=== PATIENT | female | born 1995 | race Caucasian/White ===

== ENCOUNTER → 2018-06-20 16:55 | Outpatient (CLI) | payer BC, SELFPAY ==
[2018-06-24 14:35] LABS: HPV Reflexed? NOT INDICATED
== END ==
PROVIDERS: Visit Provider Obstetrics & Gynecology
DX: Z12.4 Encounter for screening for malignant neoplasm of cervix (principal)
CPT/HCPCS: 88175; G0145

== ENCOUNTER → 2018-12-12 12:20 | Outpatient (CLI) | payer OTHER, SELFPAY ==
[2018-12-10 15:18] VITALS: BMI 26.2
--- NOTE | 2018-12-12 12:23 | US_ITS ---
STUDY: SUPERFICIAL ULTRASOUND - RIGHT SHOULDER REASON FOR EXAM: Female, 23 years old. Palpable mass of the right shoulder and right upper quadrant rib region TECHNIQUE: A superficial ultrasound was performed with real-time and static hoover-scale imaging. COMPARISON: None. FINDINGS: Imaging of the right shoulder shows normal soft tissue planes without focal fluid collection or solid mass. Imaging of the left upper quadrant shows some shadowing artifact caused by the ribs but no focal fluid collection or solid mass. US/Other Unlisted US Procedure IMPRESSION: No solid or cystic mass demonstrated. Electronically Signed: Farhan Stevenson MD at 17:28 EST , Service support ,
== END ==
PROVIDERS: Family Provider Internal Medicine; PCP Internal Medicine; Referring Provider Internal Medicine; Visit Provider Internal Medicine
DX: R22.2 Localized swelling, mass and lump, trunk (principal)
CPT/HCPCS: 76999

== ENCOUNTER → 2021-10-30 10:46 | Outpatient (CLI) | payer OTHER, SELFPAY ==
[2021-11-01 09:47] LABS: HPV Reflexed? NOT INDICATED
== END ==
PROVIDERS: PCP Internal Medicine; Visit Provider Obstetrics & Gynecology
DX: Z12.4 Encounter for screening for malignant neoplasm of cervix (principal)
CPT/HCPCS: 88175; G0145